=== PATIENT | male | born 1985 | race African-American/Black ===

== ENCOUNTER → 2016-05-19 | Emergency (ER) | payer MEDICAID ==
[~2016-05-19] MED LIST: CLON1TAB3; FLUT110A
== END | disposition left against medical advice (07) ==
LOC: ER 22:21
DX: R10.9 Unspecified abdominal pain (principal); Z53.21 Procedure and treatment not carried out due to patient leaving prior to being seen by health care provider

== ENCOUNTER 2018-02-06 15:30 | Emergency (ER) | payer MEDICAID, OTHER ==
[~2018-02-06] VITALS: Ht 195.6 cm; Wt 104.3 kg
[~2018-02-06 15:30] MED LIST changes: -CLON1TAB3; +CLON1TAB4
[2018-02-06 15:45] VITALS: BP 137/84
== END 2018-02-06 16:32 | disposition home or self-care (01) ==
LOC: ER 15:37
DX: L84 Corns and callosities (principal); L98.8 Other specified disorders of the skin and subcutaneous tissue; R23.4 Changes in skin texture

== ENCOUNTER 2018-12-10 12:45 | Emergency (ER) | payer MEDICAID, OTHER ==
[~2018-12-10] VITALS: Ht 195.6 cm; Wt 108.9 kg
[~2018-12-10 12:45] MED LIST changes: +CLON1TAB10; -CLON1TAB4
[2018-12-10 13:12] VITALS: BP 132/82
[2018-12-10] MEDS ORDERED: DexAMETHasone SOD PHOS 10MG/1ML VIAL INJ IM ONE (14:30)
== END 2018-12-10 14:48 | disposition home or self-care (01) ==
LOC: ER 12:45
DX: T78.40XA Allergy, unspecified, initial encounter (principal); F17.210 Nicotine dependence, cigarettes, uncomplicated; Z91.013 Allergy to seafood; Z91.041 Radiographic dye allergy status; X58.XXXA Exposure to other specified factors, initial encounter
CPT/HCPCS: 70360; 96372; 99284; J1100